=== PATIENT | female | born 2000 | race Caucasian/White ===

== ENCOUNTER 2019-03-16 13:46 | Emergency (ER) | payer OTHER ==
[~2019-03-16] VITALS: Ht 157.5 cm; Wt 56.7 kg
[2019-03-16 14:34] LABS: URINE BILIRUBIN NEGATIVE (Negative); URINE BLOOD 3+ (Negative); URINE CLARITY CLEAR; URINE COLOR YELLOW; URINE GLUCOSE-RANDOM NEGATIVE (Negative); URINE KETONES NEGATIVE (Negative); URINE LEUKOCYTES-REFLEX NEGATIVE (Negative); URINE NITRITE-REFLEX NEGATIVE (Negative); URINE PROTEIN TRACE (Negative); URINE SPECIFIC GRAVITY >= 1.030 (1.005-1.030); URINE UROBILINOGEN 0.2 E.U./dl (0.2-1.0)
[2019-03-16 14:42] LABS: BACTERIA-REFLEX None Seen /HPF (None Seen); SQUAMOUS >10 Many /LPF (0-3); URINE RBC >20 Many /HPF (0-2); URINE WBC-REFLEX None Seen /HPF (0-5)
[2019-03-16 14:43] LABS: CASTS None Seen /LPF (None Seen); CRYSTALS None Seen /LPF (None Seen); MUCUS 4-6 Moderate strn/LPF (None Seen)
[2019-03-16 14:49] LABS: ABSOLUTE BASOPHILS 0.1 thou/uL (0.0-0.2); ABSOLUTE EOSINOPHILS 0.2 thou/uL (0.0-0.7); ABSOLUTE LYMPHOCYTES 2.7 thou/uL (0.8-5.3); ABSOLUTE MONOCYTES 0.7 thou/uL (0.0-1.2); ABSOLUTE NEUTROPHILS 2.5 thou/uL (1.6-8.1); BASOPHILS 0.9 %; EOSINOPHILS 2.5 %; HEMATOCRIT 40.4 % (37.0-47.0); HEMOGLOBIN 13.1 gm/dL (12.0-15.0); MCH 29.1 pg (26.0-34.0); MCHC 32.4 g/dL (28.0-37.0); MCV 89.8 fL (80.0-100.0); MONOCYTES 11.1 %; NUCLEATED RBCS 0 /100WBC; PLATELET COUNT* 290 thou/uL (150-400); POLYS 41.5 %; RDW-CV 14.5 % (10.5-14.5); WBC 6.1 thou/uL (4.0-11.0)
[2019-03-16 14:57] LABS: ANION GAP 12 mmol/L (7-16); BUN 15 mg/dL (7-18); CALCIUM 8.8 mg/dL (8.5-10.1); CHLORIDE 104 mmol/L (98-107); CO2 27 mmol/L (21-32); CREATININE 1.1 mg/dL (0.6-1.3); GLUCOSE 97 mg/dL (70-99); POTASSIUM 3.5 mmol/L (3.5-5.1); SODIUM 143 mmol/L (136-145)
[2019-03-16 14:58] LABS: APTT 30.3 Seconds (25.0-31.3); INR 1.1
[2019-03-16 15:06] LABS: ALBUMIN 3.7 g/dL (3.4-5.0); ALKALINE PHOSPHATASE 91 U/L (46-116); SGOT 14 U/L (15-37); SGPT 17 U/L (30-65); TOTAL BILIRUBIN 0.3 mg/dL (<0.1-1.0); TOTAL PROTEIN 7.4 g/dL (6.4-8.2); TROPONIN-I LEVEL <0.06 ng/mL (<0.06)
[2019-03-16] MEDS ORDERED: BENTYL 20 MG TA20 M1 PO (17:11)
[2019-03-16] MEDS ORDERED: NABUMETONE 750750 M1 PO (17:11)
[2019-03-16] MEDS ORDERED: TRAMADOL 50 MG50 MG PO (17:11)
[2019-03-16] MEDS ORDERED: ONDANSETRON HCL4 M2 PO (17:11)
[2019-03-16 17:43] VITALS: BP 91/51
--- NOTE | 2019-03-17 13:58 | EKG ---
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
== END 2019-03-16 17:46 | disposition home or self-care (01) ==
LOC: M.ERS 13:46
PROVIDERS: Nurse Practitioner Family
DX: N93.9 Abnormal uterine and vaginal bleeding, unspecified (principal); G89.29 Other chronic pain; M54.5 Low back pain; R07.9 Chest pain, unspecified; K52.9 Noninfective gastroenteritis and colitis, unspecified

== ENCOUNTER 2020-09-12 08:23 | Emergency (ER) | payer OTHER ==
[~2020-09-12] VITALS: Ht 157.5 cm; Wt 59.0 kg
[~2020-09-12 08:23] MED LIST: BENTYL 20 MG TA20 M1 PO; NABUMETONE 750750 M1 PO; ONDANSETRON HCL4 M2 PO; TRAMADOL 50 MG50 MG PO
[2020-09-12 08:51] LABS: URINE BILIRUBIN 1+ (Negative); URINE BLOOD TRACE (Negative); URINE CLARITY CLEAR; URINE COLOR YELLOW; URINE GLUCOSE-RANDOM NEGATIVE (Negative); URINE KETONES NEGATIVE (Negative); URINE LEUKOCYTES-REFLEX TRACE (Negative); URINE NITRITE-REFLEX NEGATIVE (Negative); URINE PROTEIN NEGATIVE (Negative); URINE SPECIFIC GRAVITY >= 1.030 (1.005-1.030); URINE UROBILINOGEN 0.2 E.U./dl (0.2-1.0)
[2020-09-12 08:52] LABS: ABSOLUTE EOSINOPHILS 0.1 thou/uL (0.0-0.7); ABSOLUTE LYMPHOCYTES 2.5 thou/uL (0.8-5.3); ABSOLUTE MONOCYTES 0.5 thou/uL (0.0-1.2); ABSOLUTE NEUTROPHILS 2.9 thou/uL (1.6-8.1); BASOPHILS 0.6 %; EOSINOPHILS 1.4 %; HEMOGLOBIN 14.9 gm/dL (12.0-15.0); LYMPHOCYTES 41.2 %; MCH 31.1 pg (26.0-34.0); MCHC 33.2 g/dL (28.0-37.0); MCV 93.7 fL (80.0-100.0); MONOCYTES 8.6 %; MPV 8.7 fl. (7.2-11.1); NUCLEATED RBCS 0 /100WBC; PLATELET COUNT* 234 thou/uL (150-400); POLYS 48.2 %; RDW-CV 12.8 % (10.5-14.5); WBC 5.9 thou/uL (4.0-11.0)
[2020-09-12 08:52] LABS: ICTOTEST (BILI CONFIRMATORY) Negative (Negative)
[2020-09-12 08:59] LABS: BACTERIA-REFLEX >30 Many /HPF (None Seen); CASTS None Seen /LPF (None Seen); CRYSTALS None Seen /LPF (None Seen); MUCUS None Seen strn/LPF (None Seen); SQUAMOUS >10 Many /LPF (0-3); URINE RBC 3-10 Few /HPF (0-2); URINE WBC-REFLEX 6-15 Few /HPF (0-5)
[2020-09-12 09:04] LABS: CALCIUM 8.9 mg/dL (8.5-10.1); POTASSIUM 3.5 mmol/L (3.5-5.1)
[2020-09-12 09:15] LABS: ALBUMIN 3.6 g/dL (3.4-5.0); TOTAL BILIRUBIN 0.4 mg/dL (<0.1-1.0); TOTAL PROTEIN 7.5 g/dL (6.4-8.2)
[2020-09-12] MEDS ORDERED: NORCO 5-325 TA1 EAC2 PO (09:56)
[2020-09-12] MEDS ORDERED: ZOFRAN ODT4 MG DISSOLVE (09:56)
[2020-09-12] MEDS ORDERED: KEFLEX500 M1 PO (10:01)
[2020-09-12 10:11] VITALS: BP 97/65
--- NOTE | 2020-09-12 16:37 | EKG ---
[place] [address] ELECTROCARDIOGRAM REPORT Name: EVERBENJAMIN Marx Room: [facility]#: [id number] Admission: 09/12/20 Attend Phys: Discharge: 09/12/20 Date of : [birth year] Date of Service: 09/12/20 0849 Report #: [id number] THIS REPORT FOR: //name// [facility] ED Test Date: 2020-09-12 Test Time: 08:49:08 Pat Name: BENJAMIN CURTIS Department: Room: Gender: It Corporate Recruiter: kailyn : 2000 Requested By: Edgar Emery Order Number: [id number] MD: Dereck Taylor Measurements Intervals [place] Rate: 67 P: 42 UT: 126 QRS: 65 QRSD: 88 T: 44 QT: 378 QTc: 399 Interpretive Statements Sinus rhythm Baseline wander in lead(s) V2,V5 Compared to ECG 03/16/2019 14:07:56 No significant changes Electronically Signed On 09-12-2020 16:36:48 [employer]ING MACHINE OPERATOR by Dereck Taylor [email or web address] <ELECTRONICALLY SIGNED> By: Dereck Taylor MD, [facility] 09/12/20 1636 0849 0849 Dereck Taylor MD, [facility] /EPI
== END 2020-09-12 10:13 | disposition home or self-care (01) ==
LOC: M.ERS 08:23
PROVIDERS: Emergency Medicine Emergency Medical Services
DX: N39.0 Urinary tract infection, site not specified (principal); N83.201 Unspecified ovarian cyst, right side